=== PATIENT | female | born 1970 | race Caucasian/White ===

== ENCOUNTER 2017-03-15 12:19 | Emergency (ER) | payer SELFPAY ==
[2017-03-15 12:42] VITALS: BP 111/72
--- NOTE | 2017-03-15 12:44 | Emergency Department Report ---
Chief Complaint: Dental/Oral Stated Complaint: TOOTHACHE /BLURRED VISION Time Seen by Provider: 03/15/17 12:30 - HPI History of Present Illness: vision is old - needs eye md now oliver dental pain vss nad no fever no ludwigs - Exam Vital Signs: Vital Signs 03/15/17 12:36 Temperature 98.5 F Pulse Rate 72 Respiratory 18 Rate Blood Pressure 111/72 O2 Sat by Pulse 98 Oximetry MSE screening note: Focused history and physical exam performed. Due to findings the following was ordered: ED Disposition for MSE Condition: Stable
--- NOTE | 2017-03-15 14:58 | Emergency Department Report ---
HPI - General Chief Complaint: Dental/Oral Time Seen by Provider: 03/15/17 14:58 - HPI HPI: Seen here reports that she has a toothache to her left upper back tooth times several months and is getting worse today. She does not have access to a dentist. She says she also has blurred vision from time to time but does not report decrease in vision. Denies any eye pain. Denies any eye injury. Denies any eye drainage. Reports that she can't eat because of toothache. Pain is 8 out of 10 and achy. Denies any facial swelling, fever or chills or nausea or vomiting. ED Past Medical Hx - Past Medical History Previous Medical History?: No - Surgical History Past Surgical History?: No - Social History Smoking Status: Never Smoker Substance Use Type: None - Medications Home Medications: Home Medications Medication Instructions Recorded Confirmed Last Taken Type Acetaminophen/Codeine [Tylenol 1 tab PO Q6H PRN #16 tab 03/15/17 Unknown Rx /Codeine # 3 tab] Ibuprofen [Motrin] 600 mg PO Q8H PRN #15 tablet 03/15/17 Unknown Rx Penicillin Vk [Veetids TAB] 250 mg PO Q8H #60 tablet 03/15/17 Unknown Rx ED Review of Systems ROS: Stated complaint: TOOTHACHE /BLURRED VISION Other details as noted in HPI Comment: All other systems reviewed and negative Constitutional: denies: chills, fever Eyes: other (occasional blurry vision). denies: eye pain, eye discharge, vision change ENT: dental pain. denies: ear pain, throat pain, hearing loss, epistaxis, congestion Respiratory: no symptoms reported Cardiovascular: denies: chest pain, palpitations, edema, syncope Musculoskeletal: denies: back pain, arthralgia Skin: denies: rash Neurological: denies: headache, weakness, numbness, paresthesias, confusion, abnormal gait, vertigo Physical Exam - Physical Exam Vital Signs: Vital Signs 03/15/17 12:36 Temperature 98.5 F Pulse Rate 72 Respiratory 18 Rate Blood Pressure 111/72 O2 Sat by Pulse 98 Oximetry General: This is a 38-year-old female well-nourished well-developed in no acute distress. Physical Exam: Head: Normocephalic atraumatic Mouth: Moist, no pharyngeal exudate or erythema. Uvula is midline and oral airway is patent. No facial swelling. No peritonsillar abscesses. Multiple dental caries. Tooth #16 with fracture. No abscess or cellulitic area seen. No tenderness. Nose: Nasal turbunates NL. Maxillary and frontal sinuses nontender to palpate Neck: Supple, no C-spine tenderness, no tracheal deviation. Nontender to palpate. no adenopathy Ears: Bilateral TMs are espino. Bilateral EAC without any redness swelling or drainage. Abdomen: Soft, nontender to palpate in all quadrants, normal bowel sounds in all quadrant and negative CVA tenderness bilaterally. Eyes: Bilateral pupils equal and reactive to light, bilateral EOM intact. Bilateral sclera and conjunctiva without injection. Normal accommodation. No nystagmus. Funduscopic exam normal. 20/25 both eyes, 20/40 OS and 2040 OD. Subconjunctival hemorrhage Lungs: Clear to auscultate bilaterally no rhonchi wheezes or rales. Normal work of breathing extremity; No CCE. +2 pulses. No neurovascular compromise Cardiovascular: S1-S2, regular rate rhythm. No murmurs. Skin: clean Dry and intact no rash no lesions Psych: Normal mood and behavior ED Course Vital Signs 03/15/17 12:36 Temperature 98.5 F Pulse Rate 72 Respiratory 18 Rate Blood Pressure 111/72 O2 Sat by Pulse 98 Oximetry - Reevaluation(s) Reevaluation #1: 03/15/17 16:23 Condition stable throughout ED stay ED Medical Decision Making - Medical Decision Making ED course: The patient that her diagnosis is toothache, dental caries and fractured tooth. I discussed with her that I'll refer her to a dentist in the community which is a clinic and she will need to call tomorrow to schedule appointment for follow-up visit. I treatment plan the patient and she is in agreement. Patient discharged home with prescription for penicillin VK #60 and Tylenol 3, motrin Critical care attestation.: If time is entered above; I have spent that time in minutes in the direct care of this critically ill patient, excluding procedure time. ED Disposition Clinical Impression: Dental caries, Toothache Fracture, tooth Qualifiers: Encounter type: initial encounter Fracture type: closed Qualified Code(s): S02.5XXA - Fracture of tooth (traumatic), initial encounter for closed fracture Disposition: DISCHARGED TO HOME OR SELFCARE Is pt being admited?: No Does the pt Need Aspirin: No Condition: Stable Instructions: Dental Caries (ED), Toothache (ED) Additional Instructions: You will need to follow up with community dentists that you were referred to for follow-up management of toothache and dental caries. Take antibiotic as prescribed. do not take Tylenol [address] or operating heavy machinery as this will cause drowsiness Please follow up with eye doctor that you were referred to a discharge instruction paperwork for occasional blurred vision Prescriptions: Acetaminophen/Codeine [Tylenol /Codeine # 3 tab] 1 tab PO Q6H PRN #16 tab PRN Reason: Toothache Ibuprofen [Motrin] 600 mg PO Q8H PRN #15 tablet PRN Reason: Pain Penicillin Vk [Veetids TAB] 250 mg PO Q8H #60 tablet Referrals: [facility] [Outside] - 03/17/17 KELSEY NAVARRO MD [Staff Physician] - 03/18/[address] [facility] [Outside] - 03/18/17 Forms: Accompanied Note, Work/School Release Form(ED)
== END 2017-03-15 16:33 | disposition home or self-care (01) ==
LOC: ED 12:19
DX: S02.5XXA Fracture of tooth (traumatic), initial encounter for closed fracture (principal); K02.9 Dental caries, unspecified; K08.89 Other specified disorders of teeth and supporting structures; X58.XXXA Exposure to other specified factors, initial encounter; Y93.9 Activity, unspecified; Y99.9 Unspecified external cause status; Y92.9 Unspecified place or not applicable
CPT/HCPCS: 99282